=== PATIENT | female | born 1990 | race American Indian/Alaskan Native ===

== ENCOUNTER 2019-07-05 05:33 | Emergency (ER) | payer SELFPAY ==
[2019-07-05] MEDS ORDERED: ACETAMINOPHEN 500 MG TAB PO ONE (07:41)
[2019-07-05] MEDS ORDERED: ONDANSETRON 4 MG ODT TAB PO ONE (07:42)
--- NOTE | 2019-07-05 07:49 | Emergency Department Report ---
ED ENT HPI - General Chief complaint: Sore Throat Stated complaint: HEADACHE, RT EAR PAIN, DIFFICULTY IN BREATHING Time Seen by Provider: 07/05/19 07:36 Source: patient Mode of arrival: Ambulatory Limitations: No Limitations - History of Present Illness Initial comments: This is a 29-year-old female who is 6 weeks nontoxic, well nourished in appearance, no acute signs of distress presents to the ED with c/o of bilateral earaches, sore throat, rhinorrhea, nasal congestion x2 days. Patient denies any cough. Denies any abdominal pain, pelvic pain or vaginal bleeding. Denies any back pain.. Patient denies any recent travels, long car, recent hospital stays. Patient denies any ear drainage. Patient denies any trauma to the area. Patie nt denies any mastoid tenderness or tragus tenderness. Patient denies hearing decrease or hearing changes. Patient denies any hoarseness or difficulty swallowing. Patient denies any calf pain or calf tenderness. Patient denies any chest pain, short of breath, fever, chills, nausea, vomiting, hemoptysis, numbness, tingling, headache or stiff neck. Patient stated allergies to Vicodin but denies any allergies to acetaminophen itself. MD complaint: sore throat, ear pain -: days(s) (2) Location: R ear, L ear, throat Severity: mild Severity scale (0 -10): 8 Quality: aching Consistency: constant Improves with: none Worsens with: swallowing Associated Symptoms: pain with swallowing, sore throat. denies: fever, cough, gum swelling, toothache, tinnitus, hearing loss, discharge from ear, rhinorrhea - Related Data Previous Rx's Medication Instructions Recorded Last Taken Type Triamcinolone 0.025% [Kenalog 1 applic TP BID #30 gram 11/19/13 Unknown Rx 0.025% Cream] Acetaminophen/Codeine [Tylenol #3] 1 tab PO Q4H PRN #20 tab 11/26/13 Unknown Rx Ibuprofen [Motrin] 600 mg PO Q6H PRN #30 tablet 11/26/13 Unknown Rx Sulfamethoxazole/Trimethoprim 1 each PO BID #14 tablet 11/26/13 Unknown Rx [Bactrim Ds] cephALEXin [Keflex] 500 mg PO Q6H #28 capsule 11/26/13 Unknown Rx Sulfamethoxazole/Trimethoprim 1 each PO Q12H #20 tablet 12/26/15 Unknown Rx [Bactrim DS TAB] oxyCODONE /ACETAMINOPHEN [Percocet 1 tab PO Q6HR PRN #16 tablet 07/09/15 Unknown Rx 5/325] Acetaminophen [Acetaminophen 8 650 mg PO Q8H PRN #20 tablet.er 07/05/19 Unknown Rx Hour] Amoxicillin [Amoxicillin TAB] 875 mg PO BID #20 tablet 07/05/19 Unknown Rx Allergies Allergy/AdvReac Type Severity Reaction Status Date / Time acetaminophen [From Vicodin] AdvReac nonfunction Verified 11/19/13 09:46 al hydrocodone bitartrate AdvReac nonfunction Verified 11/19/13 09:46 [From Vicodin] al ED Dental HPI - General Chief complaint: Sore Throat Stated complaint: HEADACHE, RT EAR PAIN, DIFFICULTY IN BREATHING Time Seen by Provider: 07/05/19 07:36 Source: patient Mode of arrival: Ambulatory Limitations: No Limitations - Related Data Previous Rx's Medication Instructions Recorded Last Taken Type Triamcinolone 0.025% [Kenalog 1 applic TP BID #30 gram 11/19/13 Unknown Rx 0.025% Cream] Acetaminophen/Codeine [Tylenol #3] 1 tab PO Q4H PRN #20 tab 11/26/13 Unknown Rx Ibuprofen [Motrin] 600 mg PO Q6H PRN #30 tablet 11/26/13 Unknown Rx Sulfamethoxazole/Trimethoprim 1 each PO BID #14 tablet 11/26/13 Unknown Rx [Bactrim Ds] cephALEXin [Keflex] 500 mg PO Q6H #28 capsule 11/26/13 Unknown Rx Sulfamethoxazole/Trimethoprim 1 each PO Q12H #20 tablet 07/09/15 Unknown Rx [Bactrim DS TAB] oxyCODONE /ACETAMINOPHEN [Percocet 1 tab PO Q6HR PRN #16 tablet 07/09/15 Unknown Rx 5/325] Acetaminophen [Acetaminophen 8 650 mg PO Q8H PRN #20 tablet.er 07/05/19 Unknown Rx Hour] Amoxicillin [Amoxicillin TAB] 875 mg PO BID #20 tablet 07/05/19 Unknown Rx Allergies Allergy/AdvReac Type Severity Reaction Status Date / Time acetaminophen [From Vicodin] AdvReac nonfunction Verified 11/19/13 09:46 al hydrocodone bitartrate AdvReac nonfunction Verified 11/19/13 09:46 [From Vicodin] al ED Review of Systems ROS: Stated complaint: HEADACHE, RT EAR PAIN, DIFFICULTY IN BREATHING Other details as noted in HPI Constitutional: denies: chills, fever Eyes: denies: eye pain, eye discharge, vision change ENT: ear pain, throat pain Respiratory: denies: cough, shortness of breath, wheezing Cardiovascular: denies: chest pain, palpitations Endocrine: no symptoms reported Gastrointestinal: denies: abdominal pain, nausea, diarrhea Genitourinary: denies: urgency, dysuria, discharge Musculoskeletal: denies: back pain, joint swelling, arthralgia Skin: denies: rash, lesions Neurological: denies: headache, weakness, paresthesias Psychiatric: denies: anxiety, depression Hematological/Lymphatic: denies: easy bleeding, easy bruising ED Past Medical Hx - Past Medical History Previous Medical History?: Yes Hx Psychiatric Treatment: Yes (ADHD,Bipolar, Anxiety) Additional medical history: PCOS - Surgical History Past Surgical History?: No - Social History Smoking Status: Current Every Day Smoker Substance Use Type: None - Medications Home Medications: Home Medications Medication Instructions Recorded Confirmed Last Taken Type Triamcinolone 0.025% [Kenalog 1 applic TP BID #30 gram 11/19/13 Unknown Rx 0.025% Cream] Acetaminophen/Codeine [Tylenol #3] 1 tab PO Q4H PRN #20 tab 11/26/13 Unknown Rx Ibuprofen [Motrin] 600 mg PO Q6H PRN #30 tablet 11/26/13 Unknown Rx Sulfamethoxazole/Trimethoprim 1 each PO BID #14 tablet 11/26/13 Unknown Rx [Bactrim Ds] cephALEXin [Keflex] 500 mg PO Q6H #28 capsule 11/26/13 Unknown Rx Sulfamethoxazole/Trimethoprim 1 each PO Q12H #20 tablet 07/09/15 Unknown Rx [Bactrim DS TAB] oxyCODONE /ACETAMINOPHEN [Percocet 1 tab PO Q6HR PRN #16 tablet 07/09/15 Unknown Rx 5/325] Acetaminophen [Acetaminophen 8 650 mg PO Q8H PRN #20 tablet.er 07/05/19 Unknown Rx Hour] Amoxicillin [Amoxicillin TAB] 875 mg PO BID #20 tablet 07/05/19 Unknown Rx ED Physical Exam - General Limitations: No Limitations General appearance: alert, in no apparent distress - Head Head exam: Present: atraumatic, normocephalic - Expanded ENT Exam Expanded Ear exam: Present: normal external inspection TM/Canal exam: Erythema: Left TM, Bulging: Left TM Mouth exam: Present: normal external inspection. Absent: drooling, trismus, muffled voice Teeth exam: Present: normal inspection Throat exam: Positive: tonsillar erythema, other (uvula midline. No abscess or swelling.). Negative: tonsillomegaly, tonsillar exudate, R peritonsillar mass, L peritonsillar mass - Neck Neck exam: Present: normal inspection, full ROM. Absent: tenderness, meningismus, lymphadenopathy - Respiratory Respiratory exam: Present: normal lung sounds bilaterally. Absent: respiratory distress, wheezes, rales, rhonchi, stridor, chest wall tenderness, accessory muscle use, decreased breath sounds, prolonged expiratory - Cardiovascular Cardiovascular Exam: Present: regular rate, normal rhythm, normal heart sounds. Absent: irregular rhythm, systolic murmur, diastolic murmur, rubs, gallop - Extremities Exam Extremities exam: Present: full ROM - Back Exam Back exam: Present: full ROM - Neurological Exam Neurological exam: Present: alert, oriented X3, normal gait - Psychiatric Psychiatric exam: Present: normal affect, normal mood - Skin Skin exam: Present: warm, dry, intact, normal color. Absent: rash ED Course Vital Signs 07/05/19 05:41 Temperature 98.9 F Pulse Rate 101 H Respiratory 18 Rate Blood Pressure 154/101 O2 Sat by Pulse 99 Oximetry - Reevaluation(s) Reevaluation #1: 07/05/19 07:48 Patient is speaking in full sentences with no signs of distress noted. ED Medical Decision Making - Medical Decision Making This is a 29-year-old female that presents with pharyngitis and otitis media. Patient is stable and was examined by me. Patient received Tylenol and Zofran. Patient did state that she was slightly nauseous. Patient denies any complaints, complications or issues. Patient will be discharged with amoxicillin and Tylenol for pain. Patient was instructed to Follow-up with a primary care and [employer] doctor in 3-5 days or if symptoms worsen and continue return to emergency room as soon as possible. At time of discharge, the patient does not seem toxic or ill in appearance. No acute signs of distress noted. Patient agrees to discharge treatment plan of care. No further questions noted by the patient. Critical care attestation.: If time is entered above; I have spent that time in minutes in the direct care of this critically ill patient, excluding procedure time. ED Disposition Clinical Impression: Left otitis media Qualifiers: Otitis media type: unspecified Qualified Code(s): H66.92 - Otitis media, unspecified, left ear Pharyngitis Qualifiers: Pharyngitis/tonsillitis etiology: unspecified etiology Qualified Code(s): J02.9 - Acute pharyngitis, unspecified Disposition: TO HOME OR SELFCARE Is pt being admited?: No Does the pt Need Aspirin: No Condition: Stable Additional Instructions: Follow-up with a primary care and [employer] doctor in 3-5 days or if symptoms worsen and continue return to emergency room as soon as possible. Prescriptions: Acetaminophen [Acetaminophen 8 Hour] 650 mg PO Q8H PRN #20 tablet.er PRN Reason: Pain, Moderate (4-6) Amoxicillin [Amoxicillin TAB] 875 mg PO BID #20 tablet Referrals: PRIMARY MD FOREIGN [Primary Care Provider] - 3-5 Days JENI SILVA MD [Staff Physician] - 3-5 Days [facility] [Outside] - 3-5 Days [facility] [Outside] - 3-5 Days Forms: Work/School Release Form(ED)
[2019-07-05 08:11] VITALS: BP 132/89
== END 2019-07-05 08:11 | disposition home or self-care (01) ==
LOC: ED 05:33
DX: H66.93 Otitis media, unspecified, bilateral (principal); J02.9 Acute pharyngitis, unspecified; F31.9 Bipolar disorder, unspecified; F41.9 Anxiety disorder, unspecified; F17.200 Nicotine dependence, unspecified, uncomplicated; Z88.6 Allergy status to analgesic agent; Z88.5 Allergy status to narcotic agent
CPT/HCPCS: Q0162